=== PATIENT | female | born 2000 | race American Indian/Alaskan Native ===

== ENCOUNTER 2019-08-05 18:47 | Emergency (ER) | payer SELFPAY | END 2019-08-05 19:30 | disposition left against medical advice (07) | LOC: ED 18:47 | DX: O26.891 Other specified pregnancy related conditions, first trimester (principal); Z53.21 Procedure and treatment not carried out due to patient leaving prior to being seen by health care provider ==

== ENCOUNTER 2019-08-06 14:37 | Emergency (ER) | payer SELFPAY | END 2019-08-06 15:30 | LOC: ED 14:37 | DX: R11.0 Nausea (principal); Z53.21 Procedure and treatment not carried out due to patient leaving prior to being seen by health care provider ==